=== PATIENT | female | born 1995 | race Caucasian/White ===

== ENCOUNTER 2024-11-28 19:04 | Emergency (ER) | payer OTHER ==
[~2024-11-28] VITALS: Ht 160 cm; Wt 68.0 kg
[2024-11-28] MEDS ORDERED: HYDROMORPHONE 1 MG/1 ML DISP.SYRIN ONE ×2 (19:58→23:24)
[2024-11-28] MEDS ORDERED: ONDANSETRON 4 MG/2 ML VIAL ONE ×2 (19:58→23:23)
[2024-11-28] MEDS: HYDROMORPHONE 1 MG/1 ML DISP.SYRIN IV ONE ×2 (20:12→23:32)
[2024-11-28] MEDS: ONDANSETRON 4 MG/2 ML VIAL IV ONE ×2 (20:12→23:32)
[2024-11-28] MEDS: IV NS 1000 ML 1,000 ML IV ONE (20:12)
[2024-11-28 20:26] LABS: PLATELET COUNT (AUTO) 219 K/uL (179-408); RED BLOOD CELL COUNT(AUTO) 4.10 MIL/uL (3.63-4.92); RED CELL DISTRIBUTION WIDTH 12.7 % (12.3-17.7); WHITE BLOOD COUNT (AUTO) 23.5 K/uL (3.8-11.8)
[2024-11-28 20:34] LABS: CREATININE 0.5 mg/dL (0.6-1.3); SODIUM SERUM 137 mmol/L (136-145); UREA NITROGEN, BLOOD 8 mg/dL (7-18)
[2024-11-28 20:40] LABS: ASPARTATE AMINOTRANSFERASE 15 U/L (15-37); TOTAL PROTEIN, SERUM 7.1 g/dL (6.4-8.2)
[2024-11-28 21:05] LABS: *BILIRUBIN,URIN NEGATIVE (NEGATIVE); *CLARITY,URINE CLEAR (CLEAR); *COLOR,URINE YELLOW (YELLOW); *KETONES,URINE 4+ (NEGATIVE); *PROTEIN,URINE NEGATIVE (NEGATIVE); *UROBILINOGEN,URINE 0.2 E.U./dl (NORMAL); LEUKOCYTE ESTERASE ,URINE NEGATIVE (NEGATIVE); NITRITE, URINE NEGATIVE (NEGATIVE); UGLUCOSE NEGATIVE (NEGATIVE)
[2024-11-28 21:07] LABS: *AMPHETAMINE, URINE NEGATIVE (NEGATIVE); *BARBITURATE, URINE NEGATIVE (NEGATIVE); *BENZODIAZEPINE, URINE NEGATIVE (NEGATIVE); *CANNABINOID, URINE POSITIVE (NEGATIVE); *COCCAINE, URINE NEGATIVE (NEGATIVE); *OPIATE, URINE POSITIVE (NEGATIVE); *PHENCYCLIDINE SCREEN,URINE NEGATIVE (NEGATIVE); FENTANYL, URINE NEGATIVE (NEGATIVE)
[2024-11-28 21:09] LABS: *BLOOD, URINE TRACE (NEGATIVE)
[2024-11-28 21:12] LABS: *URINE HCG, QUAL POSITIVE (NEGATIVE)
[2024-11-28 21:28] LABS: SQUAMOUS EPITHELIAL CELL,UR MANY /HPF (NONE SEEN)
[2024-11-29 01:35] VITALS: BP 114/60; O2SAT 99
== END 2024-11-29 01:35 | disposition short-term general hospital (02) ==
LOC: ER 19:11
DX: O00.90 Unspecified ectopic pregnancy without intrauterine pregnancy (principal); O99.321 Drug use complicating pregnancy, first trimester; R10.2 Pelvic and perineal pain; F12.90 Cannabis use, unspecified, uncomplicated; F17.210 Nicotine dependence, cigarettes, uncomplicated; Z3A.01 Less than 8 weeks gestation of pregnancy
CPT/HCPCS: 99285; 96374; 76805; 96361; 96375; 80053; 84703; 83690; 85025; 87040; 87086; 84702; 36415; 96376; 80307; 81001; J2405 ×2; J1171 ×2; J7040; 70030-TC; A4606; A4663